=== PATIENT | female | born 1990 | race Two or more races ===

== ENCOUNTER 2019-03-21 23:26 | Emergency (ER) | payer BC ==
[~2019-03-21] VITALS: Ht 157.5 cm; Wt 54.4 kg
[2019-03-21 23:43] VITALS: BP 114/68
--- NOTE | 2019-03-21 23:43 | NUR ---
ED Nurse Note: patient walked into ED c/o left middle toe swelling. states that she recently got surgery for a bone spurt earlier this year, her PMD advised the patient to follow up if its still swelling. patient denies any pain at this time, states that it just tingling. patient is alert and oriented x4, ambulatory with a steady gait, VSS
--- NOTE | 2019-03-21 23:50 | Emergency Room Report ---
History of Present Illness General Chief Complaint: Skin Rash/Abscess Source: Patient Present Illness HPI 28-year-old female with no past medical history. She had surgery to remove a bone spur in her left foot because it was causing pain when she walked. Since then she complaining of swelling to the left third toe. Gotten worse in the last couple days. No fever chills but no nausea no vomiting. Some tingliness in that area. No new trauma. Allergies: Coded Allergies: PENICILLINS (Verified Allergy, Unknown, 03/21/19) Patient History Past Medical History: see triage record, old chart reviewed Past Surgical History: none Pertinent Family History: none Social History: Denies: smoking Last Menstrual Period: current 03/2019 Now: No Immunizations: other Reviewed Nursing Documentation: PMH: Agreed; PSxH: Agreed Review of Systems Eye: Denies: eye pain, blurred vision ENT: Denies: ear pain, nose congestion, throat swelling Respiratory: Denies: cough, shortness of breath Cardiovascular: Denies: chest pain, palpitations Gastrointestinal: Denies: abdominal pain, diarrhea, nausea, vomiting Musculoskeletal: Denies: back pain, joint pain Skin: Denies: rash Neurological: Denies: headache, numbness Endocrine: Denies: increased thirst, increased urine Hematologic/Lymphatic: Denies: easy bruising All Other Systems: negative except mentioned in HPI Physical Exam Vital Signs Date Time Temp Pulse Resp B/P (MAP) Pulse Ox O2 Delivery O2 Flow Rate FiO2 03/21/19 23:33 98.2 105 16 114/68 (83) 99 Room Air Normal Sp02 EP Interpretation: reviewed, normal General Appearance: well appearing, no apparent distress, alert Head: normocephalic, atraumatic Eyes: bilateral eye PERRL, bilateral eye EOMI ENT: hearing grossly normal, normal pharynx Neck: full range of motion, supple, no meningismus Respiratory: chest non-tender, lungs clear, normal breath sounds Cardiovascular #1: regular rate, rhythm, no murmur Gastrointestinal: normal bowel sounds, non tender, no mass, no organomegaly, no bruit, non-distended Musculoskeletal: back normal, gait/station normal, normal range of motion, other - Left third toe: Edema. No pain. Psychiatric: mood/affect normal Medical Decision Making Diagnostic Impression: Primary Impression: Edema of toe ER Course With edema of her third toe. This is probably secondary to surgery with trauma to the vessel to her toe. May be some incompetency of the valves of the blood vessel. There is no evidence of any blood clot or infection. Will discharge home. Other X-Ray Diagnostic Results Other X-Ray Diagnostic Results : X-Ray ordered: X-rays foot # of Views/Limited Vs Complete: 3 View Indication: Pain EP Interpretation: Yes Interpretation: no dislocation, no soft tissue swelling, no fractures Impression: No acute disease Electronically Signed by: Michael Valle MD Last Vital Signs Date Time Temp Pulse Resp B/P (MAP) Pulse Ox O2 Delivery O2 Flow Rate FiO2 03/21/19 23:43 98.2 86 16 114/68 99 Room Air Status: unchanged Disposition: HOME, SELF-CARE Condition: Stable Additional Instructions: Elevate foot. Follow-up with your doctor in 7 days. Return if symptoms worsen. Michael Valle MD Mar 21, 2019 23:50
--- NOTE | 2019-03-22 00:15 | NUR ---
ER Nurse Note: Pt seen, treated, medically cleared for discharge by ERMD. Discharge instuctions given with repeat verbalization by pt. Emphasized to follow up with primay care provider. All orders completed per ERMD orders. Pt a&ox4, VSS, no signs of distress. ID band removed. Pt left with all belongings, left with own transportation.
--- NOTE | 2019-03-22 12:24 | Diagnostic Imaging Report ---
Indication: Foot pain Comparison: None Findings: 3 views of the left foot were obtained. No acute fractures, malalignment, erosions or periostitis are identified. Soft tissues are unremarkable. Impression: No acute findings
== END 2019-03-22 00:15 | disposition home or self-care (01) ==
LOC: EMR 23:58
DX: R60.0 Localized edema (principal); Z88.0 Allergy status to penicillin
CPT/HCPCS: 99283